=== PATIENT | male | born 1990 | race African-American/Black ===

== ENCOUNTER 2019-02-15 09:46 | Emergency (ER) | payer SELFPAY ==
[~2019-02-15] VITALS: Ht 180.3 cm; Wt 59.0 kg
[2019-02-15 10:26] VITALS: BP 114/74
[2019-02-15] MEDS ORDERED: IBUPROFEN 800MG TABLET PO ONE (13:00)
== END 2019-02-15 13:37 | disposition home or self-care (01) ==
LOC: ER 09:46
DX: S01.511A Laceration without foreign body of lip, initial encounter (principal); F17.210 Nicotine dependence, cigarettes, uncomplicated; V49.88XA Car occupant (driver) (passenger) injured in other specified transport accidents, initial encounter; Y93.89 Activity, other specified; Y92.89 Other specified places as the place of occurrence of the external cause; Y99.8 Other external cause status
CPT/HCPCS: 99282; 99406